=== PATIENT | male | born 1950 | race Caucasian/White ===

== ENCOUNTER 2017-12-27 15:33 | Inpatient (IN) | payer MEDICARE, OTHER ==
[~2017-12-27] VITALS: Ht 188 cm; Wt 116.9 kg
[~2017-12-27 15:33] MED LIST: ASPI325T80 PO; ISOS30TA PO; LISI-170 PO; METO25TA35 PO
[2017-12-27] MEDS ORDERED: ASPIRIN 81 MG TABLET CHEW PO ONE (16:00)
[2017-12-27 16:06] LABS: BASOPHILS # (AUTO) 0.02 x10^3/uL (0-0.1); BASOPHILS % (AUTO) 0 % (0-1); EOSINOPHILS # (AUTO) 0.08 x10^3/uL (0-0.4); EOSINOPHILS % (AUTO) 1 % (1-7); LYMPHOCYTES % (AUTO) 19 % (22-44); MD NO; MEAN CORPUSCULAR HEMOGLOBIN 30.8 pg (27.5-34.5); MEAN CORPUSCULAR HGB CONC 34.6 g/dL (33.2-36.2); MEAN PLATELET VOLUME 8.3 fL (7.4-10.4); MONOCYTES # (AUTO) 0.83 x10^3/uL (0.2-0.8); MONOCYTES % (AUTO) 10 % (2-9); NEUTROPHILS # (AUTO) 6.04 x10^3/uL (1.8-6.8); NEUTROPHILS % (AUTO) 70 % (42-75); PLATELET COUNT 281 x10^3/uL (130-400); RED BLOOD COUNT 4.85 x10^6/uL (4.38-5.82); RED CELL DISTRIBUTION WIDTH 13.2 % (9.4-14.8)
[2017-12-27 16:18] LABS: ALANINE AMINOTRANSFERASE 28 U/L (12-78); ALBUMIN 3.9 g/dL (3.4-5.0); ANION GAP 10 mmol/L (5-15); CALCIUM 8.6 mg/dL (8.5-10.1); CHLORIDE 107 mmol/L (98-107); CREATININE 1.07 mg/dL (0.7-1.3)
[2017-12-27 16:23] LABS: ALKALINE PHOSPHATASE 112 U/L (45-117); BILIRUBIN,TOTAL 0.4 mg/dL (0.2-1.0); TOTAL PROTEIN 7.9 g/dL (6.4-8.2); TROPONIN I 0.051 ng/mL (0.000-0.045)
[2017-12-27] MEDS ORDERED: ONDANSETRON 2MG/ML, 2ML IVPush ONE (16:30)
[2017-12-27] MEDS ORDERED: SODIUM CHLORIDE FLUSH 10ML SYR IVF ONE (16:30)
[2017-12-27] MEDS ORDERED: MORPHINE SULFATE 4 MG/ML, 1ML IVPush PRN (16:30)
[2017-12-27] MEDS ORDERED: ASPIRIN 81 MG TABLET CHEW ONE (16:30)
[2017-12-27] MEDS ORDERED: ONDANSETRON ODT 4 MG ONE (16:31)
[2017-12-27 16:38] LABS: INTERNATIONAL NORMALIZED RATIO 0.97 (0.93-1.1)
[2017-12-27] MEDS ORDERED: CARVEDIOL (16:41)
[2017-12-27] MEDS ORDERED: ASPI-496 PO (16:41)
[2017-12-27] MEDS ORDERED: CELE200C PO (16:42)
[2017-12-27] MEDS ORDERED: SODIUM CHLORIDE FLUSH 10ML SYR IVF PRN (17:30)
[2017-12-27] MEDS ORDERED: ENOXAPARIN 40 MG/0.4 ML ONE (17:44)
[2017-12-27] MEDS ORDERED: NITROGLYCERIN 0.4 MG BOTTLE (25 TABS) SL PRN (18:00)
[2017-12-27] MEDS ORDERED: NITROGLYCERIN 0.4 MG/SPRAY SL PRN (18:00)
[2017-12-27] MEDS ORDERED: ONDANSETRON 2MG/ML, 2ML IVP PRN (18:00)
[2017-12-27] MEDS ORDERED: NITROGLYCERIN SINGLE TAB 0.4 MG SL PRN (18:00)
[2017-12-27] MEDS ORDERED: ACETAMINOPHEN 650 MG/20.3 ML UDC PO PRN (18:00)
[2017-12-27] MEDS: ENOXAPARIN 40 MG/0.4 ML SQ SCH (18:05)
[2017-12-27] MEDS ORDERED: CARV25TA12 PO (18:06)
[2017-12-27 19:47] VITALS: BP 126/73
[2017-12-27 19:49] VITALS: BP 126/74
[2017-12-27] MEDS: SODIUM CHLORIDE FLUSH 10ML SYR IVF SCH (21:00)
[2017-12-27 21:56] LABS: TROPONIN I 0.166 ng/mL (0.000-0.045)
[2017-12-27] MEDS: LISINOPRIL 20 MG TABLET PO SCH (22:14)
[2017-12-27] MEDS: CARVEDILOL 25 MG TABLET PO SCH (23:04)
[2017-12-28 01:31] VITALS: BP 107/61
[2017-12-28 04:48] LABS: ANION GAP 8 mmol/L (5-15); CALCIUM 8.4 mg/dL (8.5-10.1); CHLORIDE 110 mmol/L (98-107); CREATININE 1.25 mg/dL (0.7-1.3); TRIGLYCERIDES 99 mg/dL (50-200); VLDL CHOLESTEROL 20 mg/dL (0-25)
[2017-12-28 04:52] LABS: HDL CHOLESTEROL (DIRECT) 45 mg/dL (40-60); TROPONIN I 0.243 ng/mL (0.000-0.045)
[2017-12-28 05:49] LABS: CHOL/HDL RATIO 2.8; CHOLESTEROL, TOTAL 125 mg/dL (140-239); HDL CHOL % 36 % (26-37); LDL CHOLESTEROL,CALCULATED 60 mg/dL (54-169); LDL/HDL RATIO 1.3 (0.5-3.0)
[2017-12-28] MEDS ORDERED: ASPIRIN 325 MG TABLET EC PO SCH (06:00)
[2017-12-28 06:03] VITALS: BP 110/65
[2017-12-28] MEDS: CARVEDILOL 25 MG TABLET PO SCH ×2 (06:07→17:34)
[2017-12-28 07:49] VITALS: BP 137/82
[2017-12-28] MEDS ORDERED: SODIUM CHLORIDE 0.9% 1,000 ML IV ONE (09:24)
[2017-12-28] MEDS: LISINOPRIL 20 MG TABLET PO SCH ×2 (09:44→20:24)
[2017-12-28] MEDS: ISOSORBIDE MONONITRATE ER 30 MG TABLET PO SCH (09:45)
[2017-12-28] MEDS: SODIUM CHLORIDE FLUSH 10ML SYR IVF SCH ×2 (09:45→20:26)
[2017-12-28] MEDS ORDERED: TICAGRELOR 90 MG TABLET ONE (11:52)
[2017-12-28] MEDS ORDERED: MIDAZOLAM 1 MG/ML, 5ML ONE (11:52)
[2017-12-28] MEDS ORDERED: BIVALIRUDIN 250 MG ONE (11:52)
[2017-12-28] MEDS ORDERED: FENTANYL PF 100 MCG/2ML ONE ×2 (11:52→13:15)
[2017-12-28] MEDS ORDERED: NITROGLYCERIN 5 MG/ML, 10ML ONE (11:52)
[2017-12-28] MEDS ORDERED: VERAPAMIL 2.5 MG/ML, 2ML ONE (11:52)
[2017-12-28] MEDS ORDERED: HEPARIN 1,000 UNITS/ML, 10ML ONE (11:53)
[2017-12-28] MEDS ORDERED: LIDOCAINE 2%, 2ML ONE (11:54)
[2017-12-28 12:18] VITALS: BP 152/89
[2017-12-28] MEDS ORDERED: SODIUM CHLORIDE 0.9% 1,000 ML IV SCH (13:31)
[2017-12-28] MEDS ORDERED: ACETAMINOPHEN 325 MG TABLET PO PRN (14:00)
[2017-12-28] MEDS ORDERED: BISACODYL 5 MG EC TABLET PO PRN (14:00)
[2017-12-28] MEDS ORDERED: ZOLPIDEM 5MG TABLET PO PRN (14:00)
[2017-12-28] MEDS: ENOXAPARIN 40 MG/0.4 ML SQ SCH (17:34)
[2017-12-28 18:56] VITALS: BP 125/72
[2017-12-28] MEDS: TICAGRELOR 90 MG TABLET PO SCH (20:24)
[2017-12-28] MEDS ORDERED: ATORVASTATIN 40 MG TABLET PO SCH (21:00)
[2017-12-29 02:46] VITALS: BP 116/69
[2017-12-29] MEDS ORDERED: DIPHENHYDRAMINE/ZINC CRM 2%, 30GM TP PRN (03:00)
[2017-12-29 05:21] LABS: ANION GAP 8 mmol/L (5-15); CALCIUM 8.6 mg/dL (8.5-10.1); CHLORIDE 110 mmol/L (98-107)
[2017-12-29 05:22] LABS: CREATININE 0.97 mg/dL (0.7-1.3)
[2017-12-29] MEDS ORDERED: ASPIRIN 81 MG TABLET EC PO SCH ×2 (06:00→09:00)
[2017-12-29] MEDS: CARVEDILOL 25 MG TABLET PO SCH (06:11)
[2017-12-29 07:46] VITALS: BP 119/74
[2017-12-29] MEDS: SODIUM CHLORIDE FLUSH 10ML SYR IVF SCH (09:00)
[2017-12-29] MEDS: TICAGRELOR 90 MG TABLET PO SCH (09:00)
[2017-12-29] MEDS: ISOSORBIDE MONONITRATE ER 30 MG TABLET PO SCH (09:14)
[2017-12-29] MEDS: LISINOPRIL 20 MG TABLET PO SCH (09:15)
[2017-12-29 14:09] VITALS: BP 122/73
[2017-12-29] MEDS ORDERED: LISI-170 PO (14:37)
[2017-12-29] MEDS ORDERED: TICA90TA PO (14:37)
== END 2017-12-29 17:00 | disposition home or self-care (01) | DRG 247 ==
LOC: ED 17:18 → EDIP 17:19 → ED 17:36 → 5SO 19:34
PROVIDERS: ADMIT Family Medicine; ATTEND Family Medicine
PROC: 027135Z Dilation of Coronary Artery, Two Arteries with Two Drug-eluting Intraluminal Devices, Percutaneous Approach (ICD-10-PCS; principal; 2017-12-28)
PROC: 4A023N7 Measurement of Cardiac Sampling and Pressure, Left Heart, Percutaneous Approach (ICD-10-PCS; 2017-12-28)
PROC: B2111ZZ Fluoroscopy of Multiple Coronary Arteries using Low Osmolar Contrast (ICD-10-PCS; 2017-12-28)
DX: I21.4 Non-ST elevation (NSTEMI) myocardial infarction (principal); H91.90 Unspecified hearing loss, unspecified ear; I44.7 Left bundle-branch block, unspecified; I10 Essential (primary) hypertension; I25.110 Atherosclerotic heart disease of native coronary artery with unstable angina pectoris; Z79.82 Long term (current) use of aspirin; Z82.0 Family history of epilepsy and other diseases of the nervous system; Z95.5 Presence of coronary angioplasty implant and graft; Z82.49 Family history of ischemic heart disease and other diseases of the circulatory system; Z87.891 Personal history of nicotine dependence
CPT/HCPCS: 36415; 71045; 80048; 80053; 80061; 84443; 84484; 85025; 85610; 85730; 93005; 93306; 93458; 93571; 93572; 99156; 99157; 99285; C1769; C1894; C9600; J0583; J1644; J1650; J2250; J3010; J3490; C1725; C1874; C1887; J7030; Q9967

== ENCOUNTER → 2019-02-06 | Outpatient (CLI) | payer MEDICARE ==
[~2019-02-06] MED LIST changes: +ASPI-496 PO; +CARV25TA12 PO; +CARVEDIOL; +CELE200C PO; +REGADENOSON 0.4 MG/5 ML SYRINGE ONE; +TICA90TA PO
== END | disposition home or self-care (01) ==
LOC: CFH 07:56
PROVIDERS: ATTEND Physician Assistant Medical
DX: I25.9 Chronic ischemic heart disease, unspecified (principal); I10 Essential (primary) hypertension; I25.10 Atherosclerotic heart disease of native coronary artery without angina pectoris
CPT/HCPCS: 78452; 93017; A9502; J2785

== ENCOUNTER 2019-02-19 09:30 | Inpatient (IN) | payer MEDICARE ==
[~2019-02-19] VITALS: Ht 190.5 cm; Wt 128.6 kg
[~2019-02-19 09:30] MED LIST changes: -REGADENOSON 0.4 MG/5 ML SYRINGE ONE
[2019-02-19] MEDS ORDERED: CLOP75TA PO (10:33)
[2019-02-19] MEDS ORDERED: ATOR-2 PO (12:01)
[2019-02-19] MEDS ORDERED: HYDR-3237 PO (12:01)
[2019-02-19] MEDS ORDERED: ISOS20TA3 PO (12:01)
[2019-02-19] MEDS ORDERED: LISI-167 PO (12:01)
[2019-02-25] MEDS ORDERED: ROPIvacaine/PF 0.2%, 20 ML ONE (06:14)
[2019-02-25] MEDS ORDERED: TRANEXAMIC ACID 100 MG/ML, 10ML ONE (06:14)
[2019-02-25] MEDS ORDERED: SODIUM CHLORIDE 0.9% 100 ML ONE (06:14)
[2019-02-25] MEDS ORDERED: KETOROLAC 60 MG/2 ML ONE (06:14)
[2019-02-25] MEDS ORDERED: EPINEPHRINE 1 MG/ML, 1ML ONE (06:15)
[2019-02-25] MEDS ORDERED: LACTATED RINGERS 1,000 ML IV SCH (13:16)
[2019-02-25] MEDS ORDERED: ACETAMINOPHEN 500 MG TABLET PO ONE (13:30)
[2019-02-25] MEDS ORDERED: GABAPENTIN 300 MG CAPSULE PO ONE (13:30)
[2019-02-25 13:39] VITALS: BP 110/62
[2019-02-25] MEDS ORDERED: VANCOMYCIN PER PHARMACY MC STA (13:52)
[2019-02-25] MEDS ORDERED: VANCOMYCIN 1,500 MG in SODIUM CHLORIDE 0.9% 250 ML IV ONE (14:00)
[2019-02-25] MEDS ORDERED: MIDAZOLAM 1 MG/ML, 2ML ONE (14:41)
[2019-02-25] MEDS ORDERED: FENTANYL PF 100 MCG/2ML ONE ×4 (14:41→16:53)
[2019-02-25] MEDS ORDERED: SODIUM CHLORIDE 0.9% 1,000 ML IV SCH (15:31)
[2019-02-25] MEDS ORDERED: DIPHENHYDRAMINE 25 MG CAPSULE PO PRN (16:00)
[2019-02-25] MEDS ORDERED: BISACODYL 10 MG SUPP PR PRN (16:00)
[2019-02-25] MEDS ORDERED: POLYETHYLENE GLYCOL 17 GM PACKET PO PRN (16:00)
[2019-02-25] MEDS ORDERED: MAGNESIUM HYDROXIDE 8%, 30ML UDC PO PRN (16:00)
[2019-02-25] MEDS ORDERED: HYDROmorphone 2 MG/ML, 1ML IVPush PRN (16:00)
[2019-02-25] MEDS ORDERED: SENNA/DOCUSATE TABLET PO PRN (16:00)
[2019-02-25] MEDS ORDERED: ALUMINUM/MAG/SIMETHICONE 30 ML UDC PO PRN (16:00)
[2019-02-25] MEDS ORDERED: DIAZEPAM 5 MG TABLET PO PRN (16:00)
[2019-02-25] MEDS ORDERED: PROMETHAZINE 12.5 MG SUPP PR PRN (16:00)
[2019-02-25] MEDS ORDERED: ONDANSETRON 4 MG TABLET PO PRN (16:00)
[2019-02-25] MEDS ORDERED: ISOSORBIDE MONONITRATE ER 30 MG TABLET PO SCH (16:00)
[2019-02-25] MEDS ORDERED: ONDANSETRON 2MG/ML, 2ML IV PRN (16:00)
[2019-02-25] MEDS: ACETAMINOPHEN 325 MG TABLET PO SCH ×2 (16:00→22:00)
[2019-02-25] MEDS ORDERED: ZOLPIDEM 5MG TABLET PO PRN (16:00)
[2019-02-25] MEDS ORDERED: PROMETHAZINE 25 MG/ML, 1ML IM PRN (16:00)
[2019-02-25] MEDS ORDERED: PSYLLIUM PACKET PO PRN (16:00)
[2019-02-25] MEDS ORDERED: OXYcodone 5 MG/5 ML ORAL.SOL UDC ONE (16:54)
[2019-02-25] MEDS ORDERED: HYDROmorphone 2 MG/ML, 1ML ONE (16:54)
[2019-02-25] MEDS: CALCIUM/VITAMIN D3 250-125 TABLET PO SCH (17:00)
[2019-02-25] MEDS ORDERED: NEOSTIGMINE 1 MG/ML, 10ML ONE (17:32)
[2019-02-25] MEDS ORDERED: PROPOFOL 10 MG/ML, 20ML ONE (17:32)
[2019-02-25] MEDS ORDERED: SUCCINYLCHOLINE 20 MG/ML, 10ML ONE (17:32)
[2019-02-25] MEDS ORDERED: ROCURONIUM 10MG/ML,5ML ONE (17:32)
[2019-02-25] MEDS ORDERED: CEFAZOLIN 1,000 MG ONE (17:32)
[2019-02-25] MEDS ORDERED: ONDANSETRON 2MG/ML, 2ML ONE (17:32)
[2019-02-25] MEDS ORDERED: DEXAMETHASONE 4 MG/ML, 1ML ONE (17:32)
[2019-02-25] MEDS: FENTANYL PF 100 MCG/2ML IV PRN ×2 (17:50→18:05)
[2019-02-25] MEDS: FERROUS SULFATE 325 MG TABLET PO SCH (18:00)
[2019-02-25] MEDS ORDERED: TRANEXAMIC ACID 1,000 MG in SODIUM CHLORIDE 0.9% 100 ML IVPB ONE (18:00)
[2019-02-25] MEDS: HYDROmorphone 2 MG/ML, 1ML IVPush PRN ×5 (18:19→19:10)
[2019-02-25] MEDS ORDERED: OXYcodone 5 MG/5 ML ORAL.SOL UDC PO PRN (18:30)
[2019-02-25 19:40] VITALS: BP 154/77
[2019-02-25] MEDS ORDERED: SCOPOLAMINE PATCH, 1.5MG PATCH.TD72 TD SCH (19:57)
[2019-02-25] MEDS ORDERED: ATORVASTATIN 80 MG TABLET PO SCH (21:00)
[2019-02-25] MEDS: LISINOPRIL 10 MG TABLET PO SCH (21:10)
[2019-02-25] MEDS: KETOROLAC 30 MG/1 ML IV SCH (21:10)
[2019-02-25] MEDS: DOCUSATE 100 MG CAPSULE PO SCH (21:10)
[2019-02-25] MEDS: CARVEDILOL 25 MG TABLET PO SCH (21:11)
[2019-02-25] MEDS: CEFAZOLIN PMX 2GM/50ML 50 ML IVPB SCH (23:41)
[2019-02-25] MEDS: HYDROcodone/APAP 10/325 MG TABLET PO PRN (23:48)
[2019-02-26 00:25] VITALS: BP 115/73
[2019-02-26] MEDS: ACETAMINOPHEN 325 MG TABLET PO SCH ×2 (04:00→10:00)
[2019-02-26] MEDS: HYDROcodone/APAP 10/325 MG TABLET PO PRN ×2 (04:34→09:55)
[2019-02-26 04:55] VITALS: BP 113/72
[2019-02-26] MEDS: KETOROLAC 30 MG/1 ML IV SCH (05:33)
[2019-02-26] MEDS ORDERED: DEXAMETHASONE 4 MG/ML, 1ML IVPush ONE (06:00)
[2019-02-26] MEDS ORDERED: ASPIRIN 81 MG TABLET EC PO SCH (06:00)
[2019-02-26 06:51] VITALS: BP 108/66
[2019-02-26] MEDS: DOCUSATE 100 MG CAPSULE PO SCH (07:30)
[2019-02-26] MEDS: CALCIUM/VITAMIN D3 250-125 TABLET PO SCH (07:31)
[2019-02-26] MEDS: FERROUS SULFATE 325 MG TABLET PO SCH (07:31)
[2019-02-26] MEDS: LISINOPRIL 10 MG TABLET PO SCH (07:31)
[2019-02-26] MEDS: CARVEDILOL 25 MG TABLET PO SCH (07:31)
[2019-02-26] MEDS: CEFAZOLIN PMX 2GM/50ML 50 ML IVPB SCH (07:32)
[2019-02-26] MEDS ORDERED: MULTIVITAMINS/MINERALS TABLET PO SCH (09:00)
[2019-02-26] MEDS ORDERED: ASCORBIC ACID 500 MG TABLET PO SCH (09:00)
[2019-02-26] MEDS ORDERED: CLOPIDOGREL 75 MG TABLET PO SCH (09:00)
[2019-02-26] MEDS ORDERED: HYDR-3307 PO (10:47)
[2019-02-26 11:57] VITALS: BP 101/52
[2019-02-26 12:04] VITALS: BP 122/72
== END 2019-02-26 12:22 | disposition home or self-care (01) | DRG 470 ==
LOC: ORIP 02-25 12:53 → 4NOR 02-25 19:30
PROVIDERS: ADMIT Orthopaedic Surgery; ATTEND Orthopaedic Surgery
PROC: 0SR906A Replacement of Right Hip Joint with Oxidized Zirconium on Polyethylene Synthetic Substitute, Uncemented, Open Approach (ICD-10-PCS; principal; 2019-02-25 15:30)
DX: M16.11 Unilateral primary osteoarthritis, right hip (principal); I25.10 Atherosclerotic heart disease of native coronary artery without angina pectoris; G47.30 Sleep apnea, unspecified; I10 Essential (primary) hypertension; Z95.5 Presence of coronary angioplasty implant and graft; Z79.899 Other long term (current) drug therapy; Z88.5 Allergy status to narcotic agent; Z82.49 Family history of ischemic heart disease and other diseases of the circulatory system; Z82.61 Family history of arthritis; Z86.14 Personal history of Methicillin resistant Staphylococcus aureus infection
CPT/HCPCS: 36415; 72170; 85014; 85018; 86850; 86900; C1713; G0378; J0171; J0690; J1100; J1170; J1885; J2250; J2405; J2704; J2710; J2795; J3010; J3370; C1776; J0330; J7030; J7050; J7120

== ENCOUNTER 2019-02-19 10:10 | Outpatient (CLI) | payer MEDICARE ==
[2019-02-19] MEDS ORDERED: CLOP75TA PO (10:33)
[2019-02-19 11:01] LABS: BASOPHILS # (AUTO) 0.04 x10^3/uL (0-0.1); BASOPHILS % (AUTO) 1 % (0-1); EOSINOPHILS # (AUTO) 0.12 x10^3/uL (0-0.4); EOSINOPHILS % (AUTO) 2 % (1-7); LYMPHOCYTES % (AUTO) 21 % (22-44); MD NO; MEAN CORPUSCULAR HEMOGLOBIN 30.7 pg (27.5-34.5); MEAN CORPUSCULAR HGB CONC 33.4 g/dL (33.2-36.2); MEAN CORPUSCULAR VOLUME 91.8 fL (81-97); MEAN PLATELET VOLUME 7.5 fL (7.4-10.4); MONOCYTES % (AUTO) 10 % (2-9); NEUTROPHILS # (AUTO) 4.18 x10^3/uL (1.8-6.8); NEUTROPHILS % (AUTO) 67 % (42-75); PLATELET COUNT 237 x10^3/uL (130-400); RED BLOOD COUNT 4.48 x10^6/uL (4.38-5.82); RED CELL DISTRIBUTION WIDTH 13.6 % (9.4-14.8)
[2019-02-19 11:11] LABS: ALANINE AMINOTRANSFERASE 29 U/L (12-78); ALBUMIN 3.5 g/dL (3.4-5.0); ANION GAP 9 mmol/L (5-15); CHLORIDE 110 mmol/L (98-107)
[2019-02-19 11:14] LABS: ALKALINE PHOSPHATASE 102 U/L (45-117); BILIRUBIN,TOTAL 0.5 mg/dL (0.2-1.0); CREATININE 0.93 mg/dL (0.7-1.3)
[2019-02-19] MEDS ORDERED: ISOS20TA3 PO (12:01)
[2019-02-19] MEDS ORDERED: LISI-167 PO (12:01)
[2019-02-19] MEDS ORDERED: HYDR-3237 PO (12:01)
[2019-02-19] MEDS ORDERED: ATOR-2 PO (12:01)
== END 2019-02-19 23:59 | disposition home or self-care (01) ==
LOC: STAR 10:10
PROVIDERS: ATTEND Orthopaedic Surgery
DX: Z01.818 Encounter for other preprocedural examination (principal); M16.11 Unilateral primary osteoarthritis, right hip; M70.71 Other bursitis of hip, right hip; R94.31 Abnormal electrocardiogram [ECG] [EKG]; I44.30 Unspecified atrioventricular block; I44.7 Left bundle-branch block, unspecified
CPT/HCPCS: 36415; 80053; 85025; 87081; 93005

== ENCOUNTER 2019-02-20 11:53 | Day surgery (SDC) | payer MEDICARE, OTHER ==
[~2019-02-20] VITALS: Ht 190.5 cm; Wt 120.5 kg
[~2019-02-20 11:53] MED LIST changes: +ATOR-2 PO; +CLOP75TA PO; +HYDR-3237 PO; +ISOS20TA3 PO; +LISI-167 PO
[2019-02-20] MEDS ORDERED: HEPARIN 1,000 UNITS/ML, 10ML ONE (12:33)
[2019-02-20] MEDS ORDERED: FENTANYL PF 100 MCG/2ML ONE (12:33)
[2019-02-20] MEDS ORDERED: MIDAZOLAM 1 MG/ML, 5ML ONE (12:33)
[2019-02-20] MEDS ORDERED: LIDOCAINE-MPF 1%, 5ML ONE (12:33)
[2019-02-20] MEDS ORDERED: VERAPAMIL 2.5 MG/ML, 2ML ONE (12:33)
[2019-02-20] MEDS ORDERED: SODIUM CHLORIDE 0.9% 1,000 ML IV SCH (14:24)
== END 2019-02-20 16:22 | disposition home or self-care (01) ==
LOC: CACL 11:53
PROVIDERS: ATTEND Internal Medicine Cardiovascular Disease
DX: I25.10 Atherosclerotic heart disease of native coronary artery without angina pectoris (principal); E78.2 Mixed hyperlipidemia; I25.5 Ischemic cardiomyopathy; F52.21 Male erectile disorder; Z79.82 Long term (current) use of aspirin
CPT/HCPCS: 93458; 99156; C1769; C1894; J1644; J2250; J3010; Q9967

== ENCOUNTER 2019-04-18 10:06 | Outpatient (CLI) | payer MEDICARE ==
[~2019-04-18 10:06] MED LIST changes: +HYDR-36 PO
== END 2019-04-18 23:59 | disposition home or self-care (01) ==
LOC: CFH 10:06
PROVIDERS: ATTEND Neurological Surgery
DX: M48.061 Spinal stenosis, lumbar region without neurogenic claudication (principal); M51.36 Other intervertebral disc degeneration, lumbar region
CPT/HCPCS: 72110; 72148

== ENCOUNTER → 2019-08-06 | Outpatient (CLI) | payer MEDICARE, OTHER | END | disposition home or self-care (01) | LOC: CFH 10:34 | PROVIDERS: ATTEND Neurological Surgery | DX: M47.816 Spondylosis without myelopathy or radiculopathy, lumbar region (principal); M51.36 Other intervertebral disc degeneration, lumbar region; M48.061 Spinal stenosis, lumbar region without neurogenic claudication; Z96.641 Presence of right artificial hip joint | CPT/HCPCS: 72202 ==

== ENCOUNTER → 2020-07-13 | Outpatient (CLI) | payer MEDICARE ==
[~2020-07-13] MED LIST changes: +HYDR-3246 PO; -HYDR-36 PO; +REGADENOSON 0.4 MG/5 ML SYRINGE ONE
== END | disposition home or self-care (01) ==
LOC: CVU 06:55
PROVIDERS: ATTEND Registered Nurse
DX: Z01.810 Encounter for preprocedural cardiovascular examination (principal); I10 Essential (primary) hypertension; I25.5 Ischemic cardiomyopathy; I21.29 ST elevation (STEMI) myocardial infarction involving other sites; I36.1 Nonrheumatic tricuspid (valve) insufficiency; I44.7 Left bundle-branch block, unspecified
CPT/HCPCS: 78452; 93017; 93306; 93356; A9502; J2785

== ENCOUNTER → 2020-07-20 | Outpatient (CLI) | payer MEDICARE ==
[~2020-07-20] MED LIST changes: -REGADENOSON 0.4 MG/5 ML SYRINGE ONE
== END | disposition home or self-care (01) ==
LOC: CFH 08:03
PROVIDERS: ATTEND Neurological Surgery
DX: M41.86 Other forms of scoliosis, lumbar region (principal); M47.816 Spondylosis without myelopathy or radiculopathy, lumbar region; M25.551 Pain in right hip; M25.552 Pain in left hip; Z96.641 Presence of right artificial hip joint
CPT/HCPCS: 72110; 73523

== ENCOUNTER → 2020-08-12 | Outpatient (CLI) | payer MEDICARE ==
[~2020-08-12] MED LIST changes: +GADOTERATE 10 MMOL/20 ML SYR ONE
== END | disposition home or self-care (01) ==
LOC: CFH 13:50
PROVIDERS: ATTEND Physician Assistant
DX: M51.17 Intervertebral disc disorders with radiculopathy, lumbosacral region (principal); M25.78 Osteophyte, vertebrae; M48.061 Spinal stenosis, lumbar region without neurogenic claudication; M43.16 Spondylolisthesis, lumbar region; M47.26 Other spondylosis with radiculopathy, lumbar region
CPT/HCPCS: 72158; A9575

== ENCOUNTER 2020-11-26 12:40 | Outpatient (CLI) | payer MEDICARE ==
[~2020-11-26 12:40] MED LIST changes: -GADOTERATE 10 MMOL/20 ML SYR ONE; -HYDR-3246 PO; +HYDR-3248 PO; +ISOS20TA10 PO; -ISOS20TA3 PO
[2020-11-26] MEDS ORDERED: NAPR220C2 PO (14:13)
[2020-11-26] MEDS ORDERED: ACET-76 PO (14:13)
== END 2020-11-26 23:59 | disposition home or self-care (01) ==
LOC: STAR 12:40
PROVIDERS: ATTEND Neurological Surgery
DX: Z20.822 Contact with and (suspected) exposure to COVID-19 (principal); M48.061 Spinal stenosis, lumbar region without neurogenic claudication
CPT/HCPCS: U0003

== ENCOUNTER → 2021-01-13 | Outpatient (CLI) | payer MEDICARE ==
[~2021-01-13] MED LIST changes: +ACET-76 PO; +HYDR1TAB53 PO; +METH-640 PO; +NAPR220C2 PO
== END | disposition home or self-care (01) ==
LOC: CFH 08:30
PROVIDERS: ATTEND Physician Assistant
DX: M51.36 Other intervertebral disc degeneration, lumbar region (principal); M48.061 Spinal stenosis, lumbar region without neurogenic claudication; M25.78 Osteophyte, vertebrae; M43.16 Spondylolisthesis, lumbar region
CPT/HCPCS: 72100

== ENCOUNTER → 2021-02-26 | Outpatient (CLI) | payer MEDICARE | END | disposition home or self-care (01) | LOC: CFH 08:12 | PROVIDERS: ATTEND Student in an Organized Health Care Education/Training Program | DX: M51.16 Intervertebral disc disorders with radiculopathy, lumbar region (principal); M47.26 Other spondylosis with radiculopathy, lumbar region; M43.16 Spondylolisthesis, lumbar region; M48.07 Spinal stenosis, lumbosacral region; M51.36 Other intervertebral disc degeneration, lumbar region; M51.37 Other intervertebral disc degeneration, lumbosacral region; M47.817 Spondylosis without myelopathy or radiculopathy, lumbosacral region; M46.1 Sacroiliitis, not elsewhere classified | CPT/HCPCS: 72110 ==

== ENCOUNTER → 2021-03-25 | Outpatient (CLI) | payer MEDICARE ==
[~2021-03-25] MED LIST changes: +GADOTERATE 5 MMOL/10ML SYR ONE; +GADOTERATE 7.5 MMOL/15ML SYR ONE
== END | disposition home or self-care (01) ==
LOC: RAD 13:50
PROVIDERS: ATTEND Student in an Organized Health Care Education/Training Program
DX: S33.140A Subluxation of L4/L5 lumbar vertebra, initial encounter (principal); M47.26 Other spondylosis with radiculopathy, lumbar region; M25.78 Osteophyte, vertebrae; M48.061 Spinal stenosis, lumbar region without neurogenic claudication; X58.XXXA Exposure to other specified factors, initial encounter; Y93.89 Activity, other specified; Y92.89 Other specified places as the place of occurrence of the external cause; Y99.8 Other external cause status
CPT/HCPCS: 72110; 72131; 72158; A9575